=== PATIENT | male | born 1975 | race Caucasian/White ===

== ENCOUNTER → 2016-09-28 | Outpatient (CLI) | payer OTHER ==
--- NOTE | 2016-09-28 18:12 | REP ---
CT MAXILLOFACIAL WITHOUT CONTRAST: 09/28/2016. Clinical history: Acute sialoadenitis. Technique: Axial soft tissue and bone windows with coronal and sagittal bone window reconstructions provided. Some reconstructions performed with orthopedic metal artifact reduction software because of extensive dental amalgam spray artifact. This does still limit the examination particularly searching for small sialoliths. Findings: There is slight deviation of the nasal septum towards the right. The paranasal sinuses were clear throughout. Mastoids intact. The visualized calvarium and skull base were without fracture or focal lesion. Maxilla and mandible grossly intact. Nasal bones unremarkable. The upper cervical spine and craniocervical junction are unremarkable on this study as well. Adenoid pad intact. The nasopharyngeal airway patent and the oropharynx, hypopharynx and the tongue base unremarkable. The bilateral submandibular glands are symmetric. I do not see edema or mass. There is a questionable tiny sialolith on the left near the left submandibular gland, best seen on axial image 9. I do not see similar finding on the left. The parotid glands were symmetric and without mass or stone. No definite evidence for sialolith related to the parotids. Again, the extensive dental amalgam may certainly obscure this despite artifact reduction software. No other findings. Impression: 1. There is a tiny 3-4 mm calcification medial to the superior aspect of the left submandibular gland that may be a small sialolith. I do not see any other significant finding. No asymmetry of the submandibular or parotid glands, infiltration, nodule or edema adjacent to them. Signed by Michael Antonio MD 09/28/2016 06:14 P
== END ==
LOC: M RAD 17:01
PROVIDERS: ATTEND Otolaryngology
DX: K11.21 Acute sialoadenitis (principal)

== ENCOUNTER → 2017-02-04 | Outpatient (CLI) | payer OTHER ==
[~2017-02-04] MED LIST: AMOX500C PO; CITA40TA4 PO; IBUP200T45; TYLE325T5 PO; VITA2000 PO; ZYRT10CA PO
--- NOTE | 2017-02-05 13:55 | ECGEPIP ---
Stationary ECG Study 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
== END ==
LOC: M EKG 10:33
PROVIDERS: ATTEND Anesthesiology
DX: Z01.818 Encounter for other preprocedural examination (principal)

== ENCOUNTER → 2017-02-08 | Day surgery (SDC) | payer OTHER ==
[~2017-02-08] VITALS: Ht 167.6 cm; Wt 81.6 kg
[~2017-02-08] MED LIST changes: +ACETAMINOPH W/CODEINE #3 TAB UD PO PRN; +GLYCOPYRROLATE INJ 0.2 MG/ML 2 ML VIAL As Ordered ONE; +IBUPROFEN 800 MG TAB As Ordered ONE; +IBUPROFEN 800 MG TAB PO ONE; +LIDOCAINE 2% JELLY 30 ML As Ordered ONE; +LIDOCAINE PRES-FREE 2% 10ML AMP As Ordered ONE; +LR 1,000 ML IV ONE; +LR 1,000 ML IV SCH; +MIDAZOLAM INJ 2 MG/2 ML VIAL (J2250) As Ordered ONE; +NORCO, ANEXSIA 5/325MG TABLET (HYDROcodone/ACETAMINOPHEN) As Ordered ONE; +NORCO, ANEXSIA 5/325MG TABLET (HYDROcodone/ACETAMINOPHEN) PO PRN; +ONDANSETRON 4MG/2ML VIAL (J2405) As Ordered ONE; +ONDANSETRON 4MG/2ML VIAL (J2405) IV PRN; +PROPOFOL 200 MG/20 ML VIAL As Ordered ONE; +ROCURONIUM BROMIDE 50 MG/5 ML VIAL As Ordered ONE; +SUCCINYLCHOLINE 100 MG/5 ML SYRINGE (J0330) As Ordered ONE; +TRIAMCINOLONE ACETONIDE SUSP 40 MG/ML VIAL (J3301) As Ordered ONE; +dexameTHASONE 4 MG/ML 1ML VIAL (J1100) As Ordered ONE; +fentaNYL 100 MCG/2 ML INJECTION (J3010) As Ordered ONE; +fentaNYL 100 MCG/2 ML INJECTION (J3010) IV PRN
[2017-02-08 10:45] VITALS: BP 134/81
--- NOTE | 2017-02-08 20:01 | RO ---
DATE OF PROCEDURE: 02/08/2017 PREPROCEDURE DIAGNOSIS: Left submandibular duct obstruction, sialadenitis. POSTPROCEDURE DIAGNOSIS: Left submandibular duct obstruction, sialadenitis. PROCEDURE: Left submandibular duct sialendoscopy. FINDINGS: There was stenosis of the proximal 2 cm of the submandibular duct. SURGEON: Dr. Abe Finch MANAGEMENT PROFESSIONALS: Dr. Carson ANESTHESIA: DESCRIPTION OF PROCEDURE: Under general anesthesia with the patient intubated nasally, the patient was draped in the usual manner. I tried probing the submandibular duct but could not even get into it, so I made an incision in the floor of the mouth, located submandibular duct and then made an incision into the duct and then opened it. I then followed it and the proximal 2 cm were narrowed, so I inserted the endoscope and followed that from anterior to posterior. I scoped it 6 cm in length. I could not see a stone. I examined the whole area. The area, again, anteriorly was stenotic. This was dilated up. Once this was done, then I flushed the duct with Kenalog. The patient tolerated the procedure well. There was a minimal amount of bleeding. The patient was then extubated and transferred to the recovery room in excellent condition. Edited 02/08/2017 [facility]
== END | disposition home or self-care (01) ==
LOC: M SDC 06:03
PROVIDERS: ATTEND Otolaryngology
DX: K11.21 Acute sialoadenitis (principal); R00.1 Bradycardia, unspecified; K21.9 Gastro-esophageal reflux disease without esophagitis; M17.12 Unilateral primary osteoarthritis, left knee; M54.9 Dorsalgia, unspecified; L30.9 Dermatitis, unspecified; F32.9 Major depressive disorder, single episode, unspecified; R51 Headache; R06.83 Snoring; G47.33 Obstructive sleep apnea (adult) (pediatric); Z87.891 Personal history of nicotine dependence; Z79.899 Other long term (current) drug therapy
CPT/HCPCS: 42330; J0330; J1100; J2250; J2405; J3010; J3301

== ENCOUNTER → 2017-12-28 | Outpatient (CLI) | payer OTHER | END | disposition home or self-care (01) | LOC: M PAIN 12:30 | DX: G89.29 Other chronic pain (principal); M54.16 Radiculopathy, lumbar region; F41.9 Anxiety disorder, unspecified; Z79.899 Other long term (current) drug therapy; F17.210 Nicotine dependence, cigarettes, uncomplicated | CPT/HCPCS: G0463 ==

== ENCOUNTER → 2018-01-26 | Outpatient (CLI) | payer OTHER ==
[2018-01-26 13:11] LABS: BASO % 0.4 % (0.0-1.0); EOS # 0.1 10^3/uL (0.0-0.50); EOS % 1.1 % (0.0-3.0); HEMATOCRIT 40.3 % (42.0-52.0); HEMOGLOBIN 14.6 g/dl (13.5-17.5); IMMATURE GRANULOCYTE % 0.7 % (0-3.0); LYMPH # 1.6 10^3/uL (1.5-4.5); LYMPH % 19.8 % (24.0-44.0); MEAN CORPUSCULAR HGB CONC 36.2 g/dl (32.0-36.5); MONO # 0.5 10^3/uL (0.0-0.8); MONO % 6.6 % (0.0-5.0); NEUTROPHILS # 5.8 10^3/uL (1.8-7.7); NEUTROPHILS % 71.4 % (36.0-66.0); PLATELET COUNT, AUTOMATED 219 10^3/uL (150-450); RED BLOOD COUNT 5.04 10^6/uL (4.30-6.10); RED CELL DISTRIBUTION WIDTH 12.9 % (11.5-14.5); WHITE BLOOD COUNT 8.2 10^3/uL (4.0-10.0)
[2018-01-26 13:36] LABS: ALBUMIN 4.2 GM/DL (3.2-5.2); ALBUMIN/GLOBULIN RATIO 1.35 (1.00-1.93); ALKALINE PHOSPHATASE 75 U/L (45-117); ALT/SGPT 38 U/L (12-78); ANION GAP 7 MEQ/L (8-16); AST/SGOT 17 U/L (7-37); BILIRUBIN,TOTAL 0.7 MG/DL (0.2-1.0); BLOOD UREA NITROGEN 16 MG/DL (7-18); CARBON DIOXIDE LEVEL 27 MEQ/L (21-32); CHLORIDE LEVEL 107 MEQ/L (98-107); CREATININE FOR GFR 1.18 MG/DL (0.70-1.30); GLOMERULAR FILTRATION RATE > 60.0 (>60); GLUCOSE, FASTING 79 MG/DL (70-100); SODIUM LEVEL 141 MEQ/L (136-145); TOTAL PROTEIN 7.3 GM/DL (6.4-8.2)
[2018-01-26 14:35] LABS: VITAMIN B12 LEVEL 287 PG/ML
[2018-01-26 14:44] LABS: FOLATE 8.1 NG/ML
[2018-01-28 00:07] LABS: ANA (HEP2) Negative (.); COPPER PLASMA 94 ug/dL (72-166); Lyme Disease IgG/IgM Antibodie <0.91 ISR (0.00-0.90); Lyme Disease IgM Ab Quantitati <0.80 index (0.00-0.79)
== END ==
LOC: M WUC 11:04
DX: G44.229 Chronic tension-type headache, not intractable (principal)
CPT/HCPCS: 82525

== ENCOUNTER → 2018-02-07 | Outpatient (CLI) | payer OTHER | LOC: M PAIN 13:15 | DX: M54.16 Radiculopathy, lumbar region (principal); M51.26 Other intervertebral disc displacement, lumbar region; M43.06 Spondylolysis, lumbar region; F41.9 Anxiety disorder, unspecified; F17.210 Nicotine dependence, cigarettes, uncomplicated; Z79.899 Other long term (current) drug therapy | CPT/HCPCS: G0463 ==

== ENCOUNTER → 2018-03-31 | Outpatient (CLI) | payer OTHER | LOC: M PAIN 10:15 | DX: M54.12 Radiculopathy, cervical region (principal); M54.81 Occipital neuralgia; F41.9 Anxiety disorder, unspecified; M17.12 Unilateral primary osteoarthritis, left knee; G47.33 Obstructive sleep apnea (adult) (pediatric); F17.210 Nicotine dependence, cigarettes, uncomplicated; Z79.899 Other long term (current) drug therapy; Z86.79 Personal history of other diseases of the circulatory system | CPT/HCPCS: G0463 ==

== ENCOUNTER → 2018-04-19 | Outpatient (CLI) | payer OTHER | LOC: M PAIN 11:45 | DX: M54.12 Radiculopathy, cervical region (principal); M51.26 Other intervertebral disc displacement, lumbar region; M54.81 Occipital neuralgia; F41.9 Anxiety disorder, unspecified; M17.12 Unilateral primary osteoarthritis, left knee; G47.33 Obstructive sleep apnea (adult) (pediatric); F17.210 Nicotine dependence, cigarettes, uncomplicated; Z79.899 Other long term (current) drug therapy; Z86.79 Personal history of other diseases of the circulatory system | CPT/HCPCS: G0463 ==

== ENCOUNTER → 2018-06-08 | Outpatient (CLI) | payer OTHER ==
[~2018-06-08] MED LIST changes: -ACETAMINOPH W/CODEINE #3 TAB UD PO PRN; -AMOX500C PO; +BUPIVACAINE HCL 0.25% 30 ML VIAL As Ordered; -CITA40TA4 PO; -GLYCOPYRROLATE INJ 0.2 MG/ML 2 ML VIAL As Ordered ONE; -IBUP200T45; -IBUPROFEN 800 MG TAB As Ordered ONE; -IBUPROFEN 800 MG TAB PO ONE; +ISOVUE-M 300 61% 15ML VIAL (Q9967) As Ordered; +LIDOCAINE 1% SDV INJ 30 ML VIAL As Ordered; -LIDOCAINE 2% JELLY 30 ML As Ordered ONE; -LIDOCAINE PRES-FREE 2% 10ML AMP As Ordered ONE; -LR 1,000 ML IV ONE; -LR 1,000 ML IV SCH; -MIDAZOLAM INJ 2 MG/2 ML VIAL (J2250) As Ordered ONE; -NORCO, ANEXSIA 5/325MG TABLET (HYDROcodone/ACETAMINOPHEN) As Ordered ONE; -NORCO, ANEXSIA 5/325MG TABLET (HYDROcodone/ACETAMINOPHEN) PO PRN; -ONDANSETRON 4MG/2ML VIAL (J2405) As Ordered ONE; -ONDANSETRON 4MG/2ML VIAL (J2405) IV PRN; -PROPOFOL 200 MG/20 ML VIAL As Ordered ONE; -ROCURONIUM BROMIDE 50 MG/5 ML VIAL As Ordered ONE; -SUCCINYLCHOLINE 100 MG/5 ML SYRINGE (J0330) As Ordered ONE; -TRIAMCINOLONE ACETONIDE SUSP 40 MG/ML VIAL (J3301) As Ordered ONE; -TYLE325T5 PO; -VITA2000 PO; -ZYRT10CA PO; -dexameTHASONE 4 MG/ML 1ML VIAL (J1100) As Ordered ONE; -fentaNYL 100 MCG/2 ML INJECTION (J3010) As Ordered ONE; -fentaNYL 100 MCG/2 ML INJECTION (J3010) IV PRN
== END ==
LOC: M PAIN 08:30
DX: G89.29 Other chronic pain (principal); M47.816 Spondylosis without myelopathy or radiculopathy, lumbar region; M47.817 Spondylosis without myelopathy or radiculopathy, lumbosacral region; F41.9 Anxiety disorder, unspecified; M17.12 Unilateral primary osteoarthritis, left knee; G47.33 Obstructive sleep apnea (adult) (pediatric); F17.210 Nicotine dependence, cigarettes, uncomplicated; Z79.899 Other long term (current) drug therapy; Z86.79 Personal history of other diseases of the circulatory system
CPT/HCPCS: Q9967

== ENCOUNTER → 2018-06-29 | Outpatient (CLI) | payer OTHER | LOC: M PAIN 14:45 | DX: M54.12 Radiculopathy, cervical region (principal); M51.26 Other intervertebral disc displacement, lumbar region; M54.81 Occipital neuralgia; F41.9 Anxiety disorder, unspecified; M17.12 Unilateral primary osteoarthritis, left knee; G47.33 Obstructive sleep apnea (adult) (pediatric); F17.210 Nicotine dependence, cigarettes, uncomplicated; Z79.899 Other long term (current) drug therapy; Z86.69 Personal history of other diseases of the nervous system and sense organs; Z86.79 Personal history of other diseases of the circulatory system | CPT/HCPCS: G0463 ==

== ENCOUNTER → 2018-07-18 | Outpatient (CLI) | payer OTHER | LOC: M PAIN 16:00 | DX: M47.812 Spondylosis without myelopathy or radiculopathy, cervical region (principal); F41.9 Anxiety disorder, unspecified; M17.12 Unilateral primary osteoarthritis, left knee; G47.33 Obstructive sleep apnea (adult) (pediatric); I20.9 Angina pectoris, unspecified; F17.210 Nicotine dependence, cigarettes, uncomplicated; Z79.899 Other long term (current) drug therapy | CPT/HCPCS: G0463 ==

== ENCOUNTER → 2018-09-14 | Outpatient (CLI) | payer OTHER ==
[~2018-09-14] MED LIST changes: +AMOX500C PO; -BUPIVACAINE HCL 0.25% 30 ML VIAL As Ordered; +BUPIVACAINE HCL 0.25% 30 ML VIAL As Ordered ONE; +CITA40TA4 PO; +IBUP200T45; -ISOVUE-M 300 61% 15ML VIAL (Q9967) As Ordered; +ISOVUE-M 300 61% 15ML VIAL (Q9967) As Ordered ONE; -LIDOCAINE 1% SDV INJ 30 ML VIAL As Ordered; +LIDOCAINE 1% SDV INJ 30 ML VIAL As Ordered ONE; +MIDAZOLAM INJ 2 MG/2 ML VIAL (J2250) As Ordered ONE; +TRIAMCINOLONE ACETONIDE SUSP 40 MG/ML VIAL (J3301) As Ordered ONE; +TYLE325T5 PO; +VITA2000 PO; +ZYRT10CA PO; +fentaNYL 100 MCG/2 ML INJECTION (J3010) As Ordered ONE
--- NOTE | 2018-09-14 17:16 | REP ---
Cervical spine: Two views limited study. History: Bilateral cervical facet injection for pain. 10 seconds of fluoroscopy time is reported. Findings: A sequence of two last image hold fluoroscopically obtained spot radiographs of the cervical spine document various needle positions and contrast injections associated with cervical spine injection procedure. Electronically Signed by Nahum Perez MD 09/14/2018 06:18 P
--- NOTE | 2018-10-02 00:57 | ECWPNPC ---
PATIENT NAME: GIANNA NDIAYE : 1975 GENDER: MALE VISIT DATE: 09/14/2018 DISCHARGE DATE: 09/14/18 1654 VISIT LOCKED DATE TIME: PHYSICIAN: KALANI JEFFERS MD RESOURCE: KALANI JEFFERS MD REASON FOR APPOINTMENT 1. CERVICAL THERAPEUTIC FB W/ IV SEDATION HISTORY OF PRESENT ILLNESS HISTORY OF PRESENT ILLNESS: PAIN THE PATIENT DESCRIBES THE PAIN... FALL RISK SCREENING: SCREENING :NO FALLS IN THE PAST YEAR CURRENT MEDICATIONS TAKING ZOLOFT 100 MG TABLET 1 TABLET ORALLY DAILY, NOTES: 09/12 TAKING ZYRTEC ALLERGY 10 MG CAPSULE 1 CAPSULE ORALLY ONCE A DAY, NOTES: 09/13 1599 TAKING IBUPROFEN 200 MG TABLET 4 TABLETS WITH FOOD OR MILK NEEDED ORALLY THREE TIMES A DAY NEEDED, NOTES: LAST WEEK TAKING TUMS 500 MG TABLET CHEWABLE 3 TABLETS ORALLY PRN, NOTES: 09/12 TAKING VITAMIN B-12 1000 MCG TABLET 1 TABLET ORALLY ONCE A DAY, NOTES: 09/13 0800 TAKING OMEPRAZOLE 20 MG CAPSULE DELAYED RELEASE 1 CAPSULE ORALLY ONCE A DAY, NOTES: 09/13 1599 TAKING VITAMIN D-3 1000 UNIT CAPSULE 1 CAPSULE ORALLY ONCE A DAY, NOTES: 09/13 0800 TAKING VIAGRA 50 MG TABLET 1 TABLET NEEDED ORALLY ONCE A DAY, NOTES: HASN'T TAKEN YET DISCONTINUED TIZANIDINE HCL 2 MG TABLET 1 TABLET NEEDED ORALLY FOR SPASMS AND PAIN BEFORE BEDTIME MAY REPEAT IN 4 HRS MDD2 DISCONTINUED TOPIRAMATE 50 MG TABLET 1 TABLET ORALLY TWICE A DAY MEDICATION LIST REVIEWED AND RECONCILED WITH THE PATIENT PAST MEDICAL HISTORY ANXIETY 2003 BELLS PALSY NECK,SHOULDER AND BACK PAIN HEADACHES 2007 MICRO FX LEFT KNEE ARTHRITIS LEFT KNEE YAA ANGINA ALLERGIES N.K.D.A. SURGICAL HISTORY UMBILICAL HERNIA REPAIR A CHILD RIGHT INGUINAL HERNIA REPAIR WITH MESH 1998 MICRO FRACTURE REPAIR LEFT KNEE 2007 LEFT MINISCAL REPAIR 2008 PYLONIDAL CYST REMOVAL 2014 SALIVARY GLAND DILATION 2017 URETHRAL REPAIR AN FAMILY HISTORY FATHER: , DIAGNOSED WITH HYPERTENSION, HEART DISEASE, STROKE, OTHER MOTHER: ALIVE, DIAGNOSED WITH HYPERTENSION, CANCER 1 SISTER(S) - HEALTHY. 2 SON(S) , 1 DAUGHTER(S) . FATHER--KIDNEY DISEASEMOTHER-BLADDER [place]-MOSAIC DOWN SYNDROME. SOCIAL HISTORY GENERAL: TOBACCO USE ARE YOU A:CURRENT SMOKER ARE YOU INTERESTED IN QUITTING?THINKING ABOUT QUITTING PT STATES HE HAS CUT DOWN AND IS TRYING TO QUIT. AD PREVIOUS QUIT ATTEMPTS?YES, MORE THAN 6 MONTHS AGO. COUNSELED THE PATIENT ON SMOKING CESSATION, EDUCATION [id number]/17/2019 HOW MANY CIGARETTES A DAY DO YOU SMOKE?5 OR LESS HOW SOON AFTER YOU WAKE UP DO YOU SMOKE YOUR FIRST CIGARETTE?AFTER 60 MIN HOW OFTEN DO YOU SMOKE CIGARETTES?SOME DAYS, BUT NOT EVERY DAY PATIENT COUNSELED ON THE DANGERS OF TOBACCO USE AND URGED TO QUIT:09/14/2018 SMOKING CESSATION INFORMATION GIVEN DECLINED ALCOHOL SCREENING DID YOU HAVE A DRINK CONTAINING ALCOHOL IN THE PAST YEAR?NO POINTS0 INTERPRETATIONNEGATIVE RECREATIONAL DRUG USE DRUG USE?NO CAFFEINE CAFFEINE USE?YES HOW OFTEN AND HOW MUCH? 3-4 20 OZ BOTTLES OF [place]/WEEK EPISCOPAL [id number] REFORM RELIGIOUS LANGUAGE LANGUAGES SPOKEN:TURKMEN EDUCATION LEVEL OF EDUCATION:NOT FINISHED COLLEGE LEARNING BARRIERS / SPECIAL NEEDS BARRIERS TO LEARNING?NO HEARING IMPAIRED?NO VISION IMPAIRED?YES :CORRECTIVE LENSES COGNITIVELY IMPAIRED?NO READINESS TO LEARN?YES LEARNING PREFERENCES?YES :DEMONSTRATION/VERBAL INSTRUCTION LEARNING CAPABILITIES PRESENT?YES EMOTIONAL BARRIERS?NO SPECIAL DEVICES?NO CAN FILLER NEEDED?NO DOMESTIC VIOLENCE DO YOU FEEL SAFE IN YOUR ENVIRONMENT?YES OCCUPATION: [employer]. DIET: REGULAR. EXERCISE: WALKS. MARITAL STATUS: . OTHERS AT HOME: SPOUSE, CHILDREN. NEW PATIENT PAIN DIARY PRECIPITATING FACTORS PAIN CLINIC PFS, CLERGY, PUBLIC HEALTH REFERRALS PFS REFERRAL NEEDED?NO CLERGY REFERRAL NEEDED?NO PUBLIC HEALTH REFERRAL NEEDED?NO WAS THE PROVIDER NOTIFIED OF ANY PERTINENT INFO?YES HAS THE PATIENT BEEN EDUCATED REGARDING HIS/HER PLAN OF CARE?YES HAS THE PATIENT BEEN EDUCATED REGARDING PAIN, THE RISK FOR PAIN, THE IMPORTANCE OF EFFECTIVE PAIN MANAGEMENT, AND THE PAIN ASSESSMENT PROCESS?YES ADVANCE DIRECTIVE ADVANCE DIRECTIVE DISCUSSED WITH PATIENT:YES 09/14/18 PT DOES NOT HAVE ANY ADVANCED DIRECTIVES AND HE DECLINES INFORMATION ON HCP AT THIS TIME. AD REVIEWED WITH PATIENT 06/29/18 1505 JSREVIEWED WITH PATIENT 07/18/18 1634 JS09/14/18 1455 REVIEWED WITH PT. AD. HOSPITALIZATION/MAJOR DIAGNOSTIC PROCEDURE CHEST PAIN 2003 REVIEW OF SYSTEMS REVIEWED BY: PROVIDER: . CONSTITUTIONAL: ANY CHANGE IN YOUR MEDICAL CONDITION? NO . CHILLS NO . FEVER NO . INFECTION: DO YOU HAVE NEW INFECTIONS? NO . DO YOU HAVE HISTORY OF MRSA? NO . MUSCULOSKELETAL: ANY NEW PATTERNS OF PAIN OR NUMBNESS? NO . GASTROENTEROLOGY: ANY NEW CHANGE IN BOWEL CONTROL? NO . GENITOURINARY: ANY NEW CHANGE IN BLADDER CONTROL? NO . IS THERE A CHANCE YOU COULD BE ? NO . HEMATOLOGY/LYMPH: DO YOU TAKE ANY BLOOD THINNERS? (FOR EXAMPLE- COUMADIN, PLAVIX, AGGRENOX, PLATEL, PRADAXA, OR XARELTO) NO . WHEN WAS YOUR LAST DOSE? DATE: TIME: . NEUROLOGY: HAVE YOU FALLEN IN THE PAST 12 MONTHS? NO . ANY NEW EXTREMITY NUMBNESS OR WEAKNESS? NO . CARDIOLOGY: DO YOU HAVE A PACEMAKER OR DEFIBRILLATOR? NO . RESPIRATORY: HAVE YOU BEEN SICK IN THE PAST WEEK? NO . FEVER NO . FLU LIKE SYMPTOMS? NO . COUGH NO . INTEGUMENTARY: DO YOU HAVE ANY RASHES OR OPEN SORES? NO . ALLERGIC/IMMUNO: ARE YOU ALLERGIC TO IV DYE? NO . ANY NEW ALLERGIES? NO . PSYCHIATRIC: DO YOU HAVE THOUGHTS OF HURTING YOURSELF OR SOMEONE ELSE? NO . ARE YOU ABUSED, NEGLECTED, OR IN AN UNSAFE ENVIRONMENT? NO . ENDOCRINOLOGY: ARE YOU DIABETIC? NO . OTHER: DO YOU NEED ANY PRESCRIPTIONS? NO . IF YES, PLEASE LIST: ____ . ANY NEW PROBLEMS WITH YOUR MEDICATIONS? NO . WHEN DID YOU LAST EAT? 09/13 2299 . WHEN DID YOU LAST DRINK? 09/13 2299 . WHAT DID YOU LAST DRINK? [place] . NAME OF PERSON DRIVING YOU HOME? ____ . DO YOU HAVE ANY OTHER QUESTIONS OR CONCERNS , SARA . VITAL SIGNS WT 198.0 LBS, HT 66 IN, BMI 31.95 INDEX, BP 132/83 MM HG, HR 72 /MIN, RR 16 /MIN, TEMP 97.3 F, OXYGEN SAT % 98%, SAFE IN ENV? (Y/N) Y, NA INITIALS AW 1302, REVIEWED BY: AD. ASSESSMENTS SPONDYLOSIS OF CERVICAL REGION WITHOUT MYELOPATHY OR RADICULOPATHY - M47.812 (PRIMARY) PROCEDURES PN CERVICAL FACET BLOCK LOW BILATERAL CERVICAL PRE PROCEDURE DIAGNOSIS CERVICAL SPONDYLOSIS POST PROCEDURE DIAGNOSIS CERVICAL SPONDYLOSIS PROCEDURE BILATERAL C3-C4 AND BILATERAL C4-C5 CERVICAL FACET BLOCK SURGEON DR. KALANI JEFFERS C++ PROFESSOR NONE ANESTHESIA LOCAL WITH IV SEDATION PRE PROCEDURE NOTE THE PATIENT HAS HISTORY OF CHRONIC CERVICAL PAIN. I EVALUATE THE PATIENT AND REVIEWED THE CHART. I WENT OVER THE RISKS, ALTERNATIVES, AND BENEFITS ASSOCIATED WITH THIS PROCEDURE. THE PATIENT WOULD LIKE TO PROCEED AND GIVE CONSENT TO PERFORMED THE PROCEDURE. PATIENT WOULD LIKE TO MOVE FORWARD WITH IV SEDATION DUE TO DISCOMFORT, PAIN AND ANXIETY ASSOCIATED WITH THE PROCEDURE. THE PATIENT DENIES UNEXPLAINABLE WEIGHT LOSS, FEVER, CHILLS, OR NEW CHANGES IN URINARY OR BOWEL CONTROL. DESCRIPTION OF PROCEDURE THE PATIENT WAS BROUGHT TO THE PROCEDURE ROOM AND PLACED IN THE PRONE POSITION. THE CERVICOTHORACIC AREA WAS CLEANED WITH CHLORAPREP SOLUTION AND DRAPED ASEPTICALLY. THE PROCEDURE WAS DONE UNDER STERILE CONDITIONS. I CHECKED LATERALITY AND THE LEVEL WHERE THE PROCEDURE WAS GOING TO BE PERFORMED WITH THE PATIENT AND THE SUPPORTING STAFF AT THE MOMENT OF THE TIME OUT IN THE PROCEDURE ROOM. UNDER FLUOROSCOPIC GUIDANCE, TARGET POINT WAS SELECTED AT THE RIGHT AND LEFT C3-C4 AND RIGHT AND LEFT C4-C5 CERVICAL FACET JOINT. TARGET POINTS WERE SELECTED AFTER LATERAL ROTATION AND TILT OF THE MAGNIFIER OF THE C-ARM. LIDOCAINE 0.5% WAS USED TO NUMB THE SKIN AND THE SUBCUTANEOUS TISSUE BELOW IT. SPINAL NEEDLES, 22-GAUGE, WERE ADVANCED UNDER FLUOROSCOPIC GUIDANCE AND FOLLOWING PATIENT FEEDBACK UNTIL THE TARGETS WERE TOUCHED. THE POSITION OF THE NEEDLES WAS VERIFIED WITH AP AND LATERAL VIEWS. AFTER PROPER POSITION OF THE NEEDLES WAS ACHIEVED, ISOVUE M DYE 30, 0.1 ML WAS INJECTED SHOWING SPREAD OF THE DYE. THEN A SOLUTION OF 0.9 ML OF BUPIVACAINE 0.125% AND KENALOG 10 MG WAS INJECTED AT EACH SITE. PATIENT RECEIVED VERSED 2 MG AND FENTANYL 300 MCG IV DIVIDED DOSES. THERE WAS NO EVIDENCE OF BLOOD, PARESTHESIA OR CEREBROSPINAL FLUID DURING THE PROCEDURE. THE PATIENT WAS SENT TO THE RECOVERY ROOM. THE PATIENT WAS MOVING THE EXTREMITIES AND DOING WELL. THERE WAS NO COMPLICATION DURING THE PROCEDURE. FLUOROSCOPY TIME WAS 10 SECONDS. FACE TO FACE TIME WAS 15 MINUTES. POST PROCEDURE NOTE THE PATIENT WILL BE SEEN IN A FOLLOW UP IN THE NEXT FEW WEEKS. INSTRUCTIONS WERE GIVEN, QUESTIONS WERE ANSWERED, AND THE PATIENT EXPRESSED UNDERSTANDING AND AGREES WITH THE PLAN. I, ALONA ALVARADO, DOCUMENTED THE ABOVE INFORMATION ACTING A SCRIBE FOR DR. JEFFERS. I HAVE REVIEWED THE ABOVE DOCUMENT, WRITTEN BY ALONA ALVARADO SCRIBKong AND I VERIFY THAT IT IS ACCURATE. DIAGNOSTIC IM[facility] FACET BLOCK (PAIN)[id number] PROCEDURE CODES 6045F RADXPS IN END [id number] PXD 34140 INJ PARAVERT F JNT C/T 1 LEV, MODIFIERS: 50 15364 INJ PARAVERT F JNT C/T 2 LEV, MODIFIERS: 50 64508 MOD SED SAME PHYS/QHP 5/>YRS DISPOSITION & COMMUNICATION FOLLOW UP 3 WEEKS ELECTRONICALLY SIGNED BY KALANI JEFFERS MD, ON 10/01/2018 AT 05:50 PM EST DISCLAIMER : THIS IS A VISIT SUMMARY EXTRACTED FROM THE [email or web address] CHART. IT IS NOT A COPY OF THE [employer] PROGRESS NOTE. MTDD
== END ==
LOC: M PAIN 13:00
PROVIDERS: ATTEND Anesthesiology
DX: G89.29 Other chronic pain (principal); M47.812 Spondylosis without myelopathy or radiculopathy, cervical region; M17.12 Unilateral primary osteoarthritis, left knee; F41.9 Anxiety disorder, unspecified; G47.33 Obstructive sleep apnea (adult) (pediatric); F17.210 Nicotine dependence, cigarettes, uncomplicated; Z79.899 Other long term (current) drug therapy; Z86.69 Personal history of other diseases of the nervous system and sense organs; Z86.79 Personal history of other diseases of the circulatory system
CPT/HCPCS: 64490; 64491; 99152; J2250; J3010; J3301; Q9967

== ENCOUNTER → 2018-09-29 | Outpatient (CLI) | payer OTHER ==
[~2018-09-29] MED LIST changes: -BUPIVACAINE HCL 0.25% 30 ML VIAL As Ordered ONE; -ISOVUE-M 300 61% 15ML VIAL (Q9967) As Ordered ONE; -LIDOCAINE 1% SDV INJ 30 ML VIAL As Ordered ONE; -MIDAZOLAM INJ 2 MG/2 ML VIAL (J2250) As Ordered ONE; -TRIAMCINOLONE ACETONIDE SUSP 40 MG/ML VIAL (J3301) As Ordered ONE; -fentaNYL 100 MCG/2 ML INJECTION (J3010) As Ordered ONE
--- NOTE | 2018-10-14 23:58 | ECWPNPC ---
PATIENT NAME: GIANNA NDIAYE : 1975 GENDER: MALE VISIT DATE: 09/29/2018 DISCHARGE DATE: 09/29/18 0949 VISIT LOCKED DATE TIME: PHYSICIAN: KALANI JEFFERS MD RESOURCE: KALANI JEFFERS MD REASON FOR APPOINTMENT 1. POST PROC HISTORY OF PRESENT ILLNESS HISTORY OF PRESENT ILLNESS: PAIN THE PATIENT DESCRIBES THE PAIN... 43 YEAR OLD MALE PATIENT WITH A HISTORY OF CHRONIC NECK PAIN. THE PATIENT DESCRIBES THE PAIN ACHING, SHARP, STABBING, AND INTERMITTENT WITH A PAIN SCORE OF 3-5/10 DEPENDING ON PHYSICAL ACTIVITY. THE PATIENT WAS HERE FOR A THERAPEUTIC CERVICAL FACET BLOCK ON 09/14/2018 AND REPORTS MORE THAN 50% PAIN RELIEF AND SAYS THAT HE IS STILL DOING VERY WELL. THE PATIENT SAYS THAT HE HAS SOME STIFFNESS IN HIS NECK. PATIENT DENIES UNEXPLAINABLE WEIGHT LOSS, FEVER, CHILLS, NEW CHANGES ON HIS URINARY OR BOWEL CONTROL. FALL RISK SCREENING: SCREENING :NO FALLS IN THE PAST YEAR CURRENT MEDICATIONS TAKING ZOLOFT 100 MG TABLET 1 TABLET ORALLY DAILY, NOTES: 09/12 TAKING ZYRTEC ALLERGY 10 MG CAPSULE 1 CAPSULE ORALLY ONCE A DAY, NOTES: 09/13 1599 TAKING IBUPROFEN 200 MG TABLET 4 TABLETS WITH FOOD OR MILK NEEDED ORALLY THREE TIMES A DAY NEEDED, NOTES: LAST WEEK TAKING TUMS 500 MG TABLET CHEWABLE 3 TABLETS ORALLY PRN, NOTES: 09/12 TAKING VITAMIN B-12 1000 MCG TABLET 1 TABLET ORALLY ONCE A DAY, NOTES: 09/13 0800 TAKING OMEPRAZOLE 20 MG CAPSULE DELAYED RELEASE 1 CAPSULE ORALLY ONCE A DAY, NOTES: 09/13 1600 TAKING VITAMIN D-3 1000 UNIT CAPSULE 1 CAPSULE ORALLY ONCE A DAY, NOTES: 09/13 0800 TAKING VIAGRA 50 MG TABLET 1 TABLET NEEDED ORALLY ONCE A DAY, NOTES: HASN'T TAKEN YET MEDICATION LIST REVIEWED AND RECONCILED WITH THE PATIENT PAST MEDICAL HISTORY ANXIETY 2003 BELLS PALSY NECK,SHOULDER AND BACK PAIN HEADACHES 2007 MICRO FX LEFT KNEE ARTHRITIS LEFT KNEE YAA ANGINA ALLERGIES N.K.D.A. SURGICAL HISTORY UMBILICAL HERNIA REPAIR A CHILD RIGHT INGUINAL HERNIA REPAIR WITH MESH 1998 MICRO FRACTURE REPAIR LEFT KNEE 2007 LEFT MINISCAL REPAIR 2008 PYLONIDAL CYST REMOVAL 2014 SALIVARY GLAND DILATION 2017 URETHRAL REPAIR AN INFANT FAMILY HISTORY FATHER: , DIAGNOSED WITH HYPERTENSION, HEART DISEASE, STROKE, OTHER MOTHER: ALIVE, DIAGNOSED WITH HYPERTENSION, CANCER 1 SISTER(S) - HEALTHY. 2 SON(S) , 1 DAUGHTER(S) . FATHER--KIDNEY DISEASEMOTHER-BLADDER [place]O-MOSAIC DOWN SYNDROME. SOCIAL HISTORY GENERAL: TOBACCO USE ARE YOU A:CURRENT SMOKER ARE YOU INTERESTED IN QUITTING?THINKING ABOUT QUITTING PT STATES HE HAS CUT DOWN AND IS TRYING TO QUIT. AD PREVIOUS QUIT ATTEMPTS?YES, MORE THAN 6 MONTHS AGO. COUNSELED THE PATIENT ON SMOKING CESSATION, EDUCATION [id number]/01/2019 HOW MANY CIGARETTES A DAY DO YOU SMOKE?5 OR LESS HOW SOON AFTER YOU WAKE UP DO YOU SMOKE YOUR FIRST CIGARETTE?AFTER 60 MIN HOW OFTEN DO YOU SMOKE CIGARETTES?SOME DAYS, BUT NOT EVERY DAY PATIENT COUNSELED ON THE DANGERS OF TOBACCO USE AND URGED TO QUIT:09/29/2018 SMOKING CESSATION INFORMATION GIVEN DECLINED ALCOHOL SCREENING DID YOU HAVE A DRINK CONTAINING ALCOHOL IN THE PAST YEAR?NO POINTS0 INTERPRETATIONNEGATIVE RECREATIONAL DRUG USE DRUG USE?NO CAFFEINE CAFFEINE USE?YES HOW OFTEN AND HOW MUCH? 3-4 20 OZ BOTTLES OF [place]/WEEK ANGLICAN [id number] REFORM CONGREGATIONAL LANGUAGE LANGUAGES SPOKEN:KINYARWANDA EDUCATION LEVEL OF EDUCATION:NOT FINISHED COLLEGE LEARNING BARRIERS / SPECIAL NEEDS BARRIERS TO LEARNING?NO HEARING IMPAIRED?NO VISION IMPAIRED?YES :CORRECTIVE LENSES COGNITIVELY IMPAIRED?NO READINESS TO LEARN?YES LEARNING PREFERENCES?YES :DEMONSTRATION/VERBAL INSTRUCTION LEARNING CAPABILITIES PRESENT?YES EMOTIONAL BARRIERS?NO SPECIAL DEVICES?NO COMMERCIAL LINES UNDERWRITER NEEDED?NO DOMESTIC VIOLENCE DO YOU FEEL SAFE IN YOUR ENVIRONMENT?YES OCCUPATION: [employer]. DIET: REGULAR. EXERCISE: WALKS. MARITAL STATUS: . OTHERS AT HOME: SPOUSE, CHILDREN. NEW PATIENT PAIN DIARY PRECIPITATING FACTORS PAIN CLINIC PFS, CLERGY, PUBLIC HEALTH REFERRALS PFS REFERRAL NEEDED?NO CLERGY REFERRAL NEEDED?NO PUBLIC HEALTH REFERRAL NEEDED?NO WAS THE PROVIDER NOTIFIED OF ANY PERTINENT INFO?YES HAS THE PATIENT BEEN EDUCATED REGARDING HIS/HER PLAN OF CARE?YES HAS THE PATIENT BEEN EDUCATED REGARDING PAIN, THE RISK FOR PAIN, THE IMPORTANCE OF EFFECTIVE PAIN MANAGEMENT, AND THE PAIN ASSESSMENT PROCESS?YES ADVANCE DIRECTIVE ADVANCE DIRECTIVE DISCUSSED WITH PATIENT:YES 09/29/18 PT DOES NOT HAVE ANY ADVANCED DIRECTIVES AND HE DECLINES INFORMATION ON HCP OR ASSISTANCE AT THIS TIME. LAS REVIEWED WITH PATIENT 06/29/18 1505 JSREVIEWED WITH PATIENT 07/18/18 1634 JS09/14/18 1455 REVIEWED WITH PT. AD2/1922 REVIEWED WITH PT LAS. HOSPITALIZATION/MAJOR DIAGNOSTIC PROCEDURE CHEST PAIN 2003 REVIEW OF SYSTEMS REVIEWED BY: PROVIDER: KALANI JEFFERS MD . CONSTITUTIONAL: ANY CHANGE IN YOUR MEDICAL CONDITION? NO . CHILLS NO . FEVER NO . INFECTION: DO YOU HAVE NEW INFECTIONS? NO . DO YOU HAVE HISTORY OF MRSA? NO . MUSCULOSKELETAL: ANY NEW PATTERNS OF PAIN OR NUMBNESS? PT HAD BILATERAL CERVICAL THERAPEUTIC FACET BLOCK DONE 09/14, REPORTS SOME IMPROVEMENT. BUT ALSO REPORTS A NEW FEELING OF PRESSURE ABOVE THE SITE OF HIS INJECTION ON HIS LEFT NECK AREA, ESPECIALLY WHEN HE TURNS HIS HEAD TO THE LEFT. STATES HE IS STILL HAVING HEADACHES, ALSO REPORTS A PINCHING FEELING. . GASTROENTEROLOGY: ANY NEW CHANGE IN BOWEL CONTROL? NO . GENITOURINARY: ANY NEW CHANGE IN BLADDER CONTROL? NO . IS THERE A CHANCE YOU COULD BE ? NO . HEMATOLOGY/LYMPH: DO YOU TAKE ANY BLOOD THINNERS? (FOR EXAMPLE- COUMADIN, PLAVIX, AGGRENOX, PLATEL, PRADAXA, OR XARELTO) NO . WHEN WAS YOUR LAST DOSE? DATE: TIME: . NEUROLOGY: HAVE YOU FALLEN IN THE PAST 12 MONTHS? NO . ANY NEW EXTREMITY NUMBNESS OR WEAKNESS? NO . CARDIOLOGY: DO YOU HAVE A PACEMAKER OR DEFIBRILLATOR? NO . RESPIRATORY: HAVE YOU BEEN SICK IN THE PAST WEEK? NO . FEVER NO . FLU LIKE SYMPTOMS? NO . COUGH NO . INTEGUMENTARY: DO YOU HAVE ANY RASHES OR OPEN SORES? NO . ALLERGIC/IMMUNO: ARE YOU ALLERGIC TO IV DYE? NO . ANY NEW ALLERGIES? NO . PSYCHIATRIC: DO YOU HAVE THOUGHTS OF HURTING YOURSELF OR SOMEONE ELSE? NO . ARE YOU ABUSED, NEGLECTED, OR IN AN UNSAFE ENVIRONMENT? NO . ENDOCRINOLOGY: ARE YOU DIABETIC? NO . OTHER: DO YOU NEED ANY PRESCRIPTIONS? NO . IF YES, PLEASE LIST: ____ . ANY NEW PROBLEMS WITH YOUR MEDICATIONS? NO . WHEN DID YOU LAST EAT? ____ . WHEN DID YOU LAST DRINK? ____ . WHAT DID YOU LAST DRINK? ____ . NAME OF PERSON DRIVING YOU HOME? ____ . DO YOU HAVE ANY OTHER QUESTIONS OR CONCERNS NO . VITAL SIGNS WT 191.2 LBS, HT 66 IN, BMI 30.86 INDEX, BP 133/86 MM HG, HR 54 /MIN, RR 18 /MIN, TEMP 96.9 F, OXYGEN SAT % 98%, SAFE IN ENV? (Y/N) YES, NA INITIALS HI 09:11, REVIEWED BY: JING. EXAMINATION GENERAL EXAMINATION: PATIENT IS ALERT O X 3 AND COOPERATIVE. MRI OF THE CERVICAL SPINE DONE ON 04/11/2018 SHOWS FACET ARTHROPATHY CHANGES AT MULTIPLE LEVELS. ASSESSMENTS SPONDYLOSIS OF CERVICAL REGION WITHOUT MYELOPATHY OR RADICULOPATHY - M47.812 (PRIMARY) TREATMENT SPONDYLOSIS OF CERVICAL REGION WITHOUT MYELOPATHY OR RADICULOPATHY CLINICAL NOTES: WE DISCUSSED SEVERAL ISSUES WITH MR. NDIAYE'S PAIN MANAGEMENT CASE. THE PATIENT REPORTS THAT HE IS DOING WELL, SO WE WILL NOT BE MOVING FORWARD WITH ANY INTERVENTIONS AT THIS TIME. I WILL REQUEST AN INTERFERENTIAL TENS UNIT FOR THE STIFFNESS IN HIS NECK. THE PATIENT WILL FOLLOW UP IN 2 MONTHS. INSTRUCTIONS WERE GIVEN, QUESTIONS WERE ANSWERED, PATIENT REPORTS UNDERSTANDING AND AGREES WITH THE PLAN. I, ALONA ALVARADO, DOCUMENTED THE ABOVE INFORMATION ACTING A SCRIBE FOR DR. JEFFERS. I HAVE REVIEWED THE ABOVE DOCUMENT, WRITTEN BY ALONA GUTIERREZ AND I VERIFY THAT IT IS ACCURATE. PROCEDURE CODES FA211 ESTABILISHED PATIENT [facility] FAC[facility] CHARGE G8427 CURRENT MEDS W/DOSAGES DOCUMENTED G8730 PAIN ASSESS POS TOOL F/U PLAN DOC DISPOSITION & COMMUNICATION FOLLOW UP 2 MONTHS ELECTRONICALLY SIGNED BY KALANI JEFFERS MD, ON 10/14/2018 AT 05:09 PM EST DISCLAIMER : THIS IS A VISIT SUMMARY EXTRACTED FROM THE [employer] CHART. IT IS NOT A COPY OF THE [employer] PROGRESS NOTE. MTDD
== END ==
LOC: M PAIN 08:45
PROVIDERS: ATTEND Anesthesiology
DX: M47.812 Spondylosis without myelopathy or radiculopathy, cervical region (principal); G89.29 Other chronic pain; F41.9 Anxiety disorder, unspecified; M17.12 Unilateral primary osteoarthritis, left knee; F17.210 Nicotine dependence, cigarettes, uncomplicated; Z79.899 Other long term (current) drug therapy; Z86.79 Personal history of other diseases of the circulatory system

== ENCOUNTER → 2020-01-29 | Outpatient (CLI) | payer OTHER ==
--- NOTE | 2020-01-31 01:53 | ECWPNPC ---
PATIENT NAME: GIANNA NDIAYE : 1975 GENDER: MALE VISIT DATE: 01/29/2020 DISCHARGE DATE: 01/29/20 1415 VISIT LOCKED DATE TIME: PHYSICIAN: KYMBERLY COPELAND RESOURCE: KYMBERLY COPELAND REASON FOR APPOINTMENT 1. BACK/NECK-PER FIDELIA HISTORY OF PRESENT ILLNESS GENERAL: - -44-YEAR-OLD MALE IN FOR CHRONIC PAIN FOLLOW-UP. HE RATES HIS PAIN CURRENTLY AT A 7 OUT OF 10 AND DESCRIBES IT PINCHING PRESSURE-LIKE FEELING THAT IS STIFF AND SORE. PATIENT HAS HAD CERVICAL FACET BLOCKS IN THE PAST WITH GOOD RELIEF. FALL RISK SCREENING: SCREENING :NO FALLS REPORTED IN THE LAST YEAR PAIN SCREENING: PATIENT HAS A COMPLAINT OF ACUTE OR CHRONIC PAIN :YES LOCATION OF PAIN:NECK, LOW BACK INTENSITY OF PAIN (SCALE OF 1 TO 10):7 WHAT DOES YOUR PAIN FEEL LIKE: NECK- PINCHING, WARM, FEELS LIKE FLUID FLOWING, PRESSURE BACK- ACHY, STIFFNESS, SORE DURATION:CONTINOUS, CONSTANT, ALL DAY, AWAKENS FROM SLEEP PAIN IS INCREASED BY:ACTIVITIES, OTHERS SITTING PAIN IS DECREASED BY:USE OF PAIN MEDICATIONS MOTRIN LEVEL OF RELIEF FROM PAIN TREATMENTS IN THE PAST:75% PAIN HAS INTERFERED WITH THE FOLLOWING:EMPLOYMENT, SLEEP, RELATIONSHIP WITH OTHERS, ENJOYMENT OF LIFE PLAN/GOALS/TREATMENT/INTERVENTION/FOLLOW UP:SEE PLAN NURSING NOTE: - -. PAIN CENTER INTAKE QUESTIONS: DO YOU HAVE A HISTORY OF MRSA? :NO DO YOU TAKE A BLOOD THINNERS? :NO DO YOU HAVE ANY BLEEDING DISORDERS? :NO ANY NEW NUMBNESS OR WEAKNESS IN YOUR LEGS OR ARMS? :NO ANY PACEMAKER,DEFIBRILLATOR, OR DORSAL COLUMN STIMULATOR? :NO DO YOU HAVE ANY RASHES OR OPEN SORES? :NO ARE YOU ALLERGIC TO IV DYE? :NO ARE YOU DIABETIC? :NO ANY NEW PROBLEMS WITH YOUR MEDICATIONS? :NO HAVE YOU RECEIVED A VACCINE IN THE PAST 30 DAYS? :NO DO YOU PLAN TO RECEIVE A VACCINE IN THE NEXT 21 DAYS? :NO DO YOU NEED ANY PRESCRIPTION? :NO DO YOU TAKE ANY IMMUNOSUPPRESSIVE MEDICATIONS? :NO CURRENT MEDICATIONS TAKING ZYRTEC ALLERGY 10 MG CAPSULE 1 CAPSULE ORALLY ONCE A DAY, NOTES: 09/13 1600 TAKING IBUPROFEN 200 MG TABLET 4 TABLETS WITH FOOD OR MILK NEEDED ORALLY THREE TIMES A DAY NEEDED, NOTES: LAST WEEK TAKING TUMS 500 MG TABLET CHEWABLE 3 TABLETS ORALLY PRN, NOTES: 09/12 TAKING VITAMIN B-12 1000 MCG TABLET 1 TABLET ORALLY ONCE A DAY, NOTES: 09/13 0800 TAKING OMEPRAZOLE 20 MG CAPSULE DELAYED RELEASE 1 CAPSULE ORALLY ONCE A DAY, NOTES: 09/13 1600 TAKING VITAMIN D-3 1000 UNIT CAPSULE 1 CAPSULE ORALLY ONCE A DAY, NOTES: 09/13 0800 TAKING VIAGRA 50 MG TABLET 1 TABLET NEEDED ORALLY ONCE A DAY, NOTES: HASN'T TAKEN YET NOT-TAKING ZOLOFT 100 MG TABLET 1 TABLET ORALLY DAILY, NOTES: 09/12 MEDICATION LIST REVIEWED AND RECONCILED WITH THE PATIENT PAST MEDICAL HISTORY ANXIETY 2003 BELLS PALSY NECK,SHOULDER AND BACK PAIN HEADACHES 2007 MICRO FX LEFT KNEE ARTHRITIS LEFT KNEE YAA ANGINA ALLERGIES N.K.D.A. SURGICAL HISTORY UMBILICAL HERNIA REPAIR A CHILD RIGHT INGUINAL HERNIA REPAIR WITH MESH 1998 MICRO FRACTURE REPAIR LEFT KNEE 2007 LEFT MINISCAL REPAIR 2008 PYLONIDAL CYST REMOVAL 2014 SALIVARY GLAND DILATION 2017 URETHRAL REPAIR AN FAMILY HISTORY FATHER: , DIAGNOSED WITH UNSPECIFIED HEART DISEASE, UNSPECIFIED CEREBRAL ARTERY OCCLUSION WITH CEREBRAL INFARCTION, OTHER SPECIFIED CONDITIONS INFLUENCING HEALTH STATUS, HYPERTENSION MOTHER: ALIVE, HYPERTENSION, OTHER MALIGNANT NEOPLASM OF UNSPECIFIED SITE 1 SISTER(S) - HEALTHY. 2 SON(S) , 1 DAUGHTER(S) . FATHER--KIDNEY DISEASEMOTHER-BLADDER ORLANDO-MOSAIC DOWN SYNDROME. SOCIAL HISTORY GENERAL: TOBACCO USE ARE YOU A:CURRENT SMOKER ARE YOU INTERESTED IN QUITTING?THINKING ABOUT QUITTING PT STATES HE HAS CUT DOWN AND IS TRYING TO QUIT. AD PREVIOUS QUIT ATTEMPTS?YES, MORE THAN 6 MONTHS AGO. COUNSELED THE PATIENT ON SMOKING CESSATION, EDUCATION [id number]/02/2020 HOW MANY CIGARETTES A DAY DO YOU SMOKE?5 OR LESS HOW SOON AFTER YOU WAKE UP DO YOU SMOKE YOUR FIRST CIGARETTE?AFTER 60 MIN HOW OFTEN DO YOU SMOKE CIGARETTES?SOME DAYS, BUT NOT EVERY DAY PATIENT COUNSELED ON THE DANGERS OF TOBACCO USE AND URGED TO QUIT:01/29/2020 SMOKING CESSATION INFORMATION GIVEN01/29/2020 DECLINED LATEX QUESTIONNAIRE LATEX ALLERGY : HAVE YOU EVER DEVELOPED ANY TYPE OF REACTION AFTER HANDLING LATEX PRODUCTS SUCH RUBBER GLOVES, CONDOMS, DIAPHRAGMS, BALLOONS, SOCKS, OR UNDERWEAR?NO LATEX ALLERGY : HAVE YOU EVER DEVELOPED ANY TYPE OF REACTION DURING OR AFTER DENTAL APPOINTMENT, VAGINAL/RECTAL EXAMINATION, SURGICAL PROCEDURE, OR ANY OTHER EXPOSURE?NO LATEX RISK : HAVE YOU EVER HAD ANY DIFFICULTY BREATHING OR HIVES AFTER EATING OR HANDLING ANY FRUITS, OR VEGETABLES; SUCH KIWI, BANANAS, STONE FRUITS, OR CHESTNUTSNO LATEX RISK : DO YOU HAVE A PREVIOUS PERSONAL HISTORY OF MORE THAN NINE SURGERIES, SPINA BIFIDA, OR REPEATED CATHERIZATIONS? NO LATEX RISK : ARE YOU FREQUENTLY EXPOSED TO LATEX PRODUCTS IN YOUR OCCUPATION?NO DATE ASKED : 01/29/2020 ALCOHOL SCREENING DID YOU HAVE A DRINK CONTAINING ALCOHOL IN THE PAST YEAR?NO POINTS0 INTERPRETATIONNEGATIVE RECREATIONAL DRUG USE DRUG USE?NO CAFFEINE CAFFEINE USE?YES HOW OFTEN AND HOW MUCH? 3-4 20 OZ BOTTLES OF [place]/WEEK RESTORATION [id number] REFORM [place] LANGUAGE LANGUAGES SPOKEN:CAMEROONIAN EDUCATION LEVEL OF EDUCATION:NOT FINISHED COLLEGE LEARNING BARRIERS / SPECIAL NEEDS BARRIERS TO LEARNING?NO HEARING IMPAIRED?NO VISION IMPAIRED?YES COGNITIVELY IMPAIRED?NO :CORRECTIVE LENSES READINESS TO LEARN?YES LEARNING PREFERENCES?YES :DEMONSTRATION/VERBAL INSTRUCTION LEARNING CAPABILITIES PRESENT?YES EMOTIONAL BARRIERS?NO SPECIAL DEVICES?NO FLOOR ASSEMBLER NEEDED?NO DOMESTIC VIOLENCE DO YOU FEEL SAFE IN YOUR ENVIRONMENT?YES OCCUPATION: . DIET: REGULAR. EXERCISE: WALKS. MARITAL STATUS: . OTHERS AT HOME: SPOUSE, CHILDREN. NEW PATIENT PAIN DIARY PRECIPITATING FACTORS PAIN CLINIC PFS, CLERGY, PUBLIC HEALTH REFERRALS PFS REFERRAL NEEDED?NO CLERGY REFERRAL NEEDED?NO PUBLIC HEALTH REFERRAL NEEDED?NO WAS THE PROVIDER NOTIFIED OF ANY PERTINENT INFO?YES HAS THE PATIENT BEEN EDUCATED REGARDING HIS/HER PLAN OF CARE?YES HAS THE PATIENT BEEN EDUCATED REGARDING PAIN, THE RISK FOR PAIN, THE IMPORTANCE OF EFFECTIVE PAIN MANAGEMENT, AND THE PAIN ASSESSMENT PROCESS?YES ADVANCE DIRECTIVE ADVANCE DIRECTIVE DISCUSSED WITH PATIENT:YES 09/29/18 PT DOES NOT HAVE ANY ADVANCED DIRECTIVES AND HE DECLINES INFORMATION ON HCP OR ASSISTANCE AT THIS TIME. LAS HOSPITALIZATION/MAJOR DIAGNOSTIC PROCEDURE CHEST PAIN 2004 REVIEW OF SYSTEMS CONSTITUTIONAL: ANY RECENT FEVER OR ILLNESS NO . CHILLS NO . GASTROENTEROLOGY: BOWEL INCONTINENCE NO . ANY NEW CHANGE IN BOWEL CONTROL? NO . ABDOMINAL PAIN NO . CONSTIPATION NO . GENITOURINARY: ANY NEW CHANGE IN BLADDER CONTROL? NO . URINARY INCONTINENCE NO . CARDIOLOGY: CHEST PRESSURE NO . CHEST PAIN NO . RESPIRATORY: COUGH NO . SHORTNESS OF BREATH NO . VITAL SIGNS WT 190.8 LBS, HT 66 IN, BMI 30.79 INDEX, BP 144/77 MM HG, HR 66 /MIN, RR 18 /MIN, TEMP 97.5 F, OXYGEN SAT % 95%, SAFE IN ENV? (Y/N) YES, NA INITIALS AW [id number] ASUMADU RADIOACTIVITY TECHNICIAN. EXAMINATION GENERAL EXAMINATION: GENERALNO ACUTE DISTRESS, WELL NOURISHED AND HYDRATED. PSYCHAPPROPRIATE MOOD AND AFFECT . NECK:POINT TENDER ALONG CERVICAL SPINE, SURROUNDING SKIN SHOWS NO ERYTHEMA, ECCHYMOSIS, INCREASED WARMTH, AND/OR SKIN ERUPTIONS NOTED. . LUNGS:CLEAR TO AUSCULTATION BILATERALLY, NO WHEEZES, RHONCHI, RALES. HEART:NO MURMURS, REGULAR RATE AND RHYTHM. ASSESSMENTS SPONDYLOSIS OF CERVICAL REGION WITHOUT MYELOPATHY OR RADICULOPATHY - M47.812 (PRIMARY) TREATMENT SPONDYLOSIS OF CERVICAL REGION WITHOUT MYELOPATHY OR RADICULOPATHY NOTES: THERAPEUTIC CERVICAL FACET BLOCK C3-C4 C4-C5. CLINICAL NOTES: 44-YEAR-OLD MALE IN FOR CHRONIC PAIN FOLLOW-UP. GIVEN PRESENTING SYMPTOMS RECOMMEND THERAPEUTIC CERVICAL FACET BLOCK C3 C4 C4 C5 WITH POST PROCEDURAL FOLLOW-UP. PATIENT HAS EXPRESSED UNDERSTANDING OF AND WAS IN AGREEMENT WITH TREATMENT PLAN. GIVEN TIME TO ASK QUESTIONS AND EXPRESS CONCERNS. OTHERS NOTES: FACET JOINT INJECTION MATERIAL WAS PRINTED. DISPOSITION & COMMUNICATION FOLLOW UP POSTPROCEDURE (REASON: THERAPEUTIC CERVICAL FACET BLOCK C3-C4 C4-C5) ELECTRONICALLY SIGNED BY JAIME MIN ON 01/30/2020 AT 08:34 AM EDT DISCLAIMER : THIS IS A VISIT SUMMARY EXTRACTED FROM THE [facility] CHART. IT IS NOT A COPY OF THE [employer] PROGRESS NOTE. OBED
== END ==
LOC: M PAIN 13:30
PROVIDERS: ATTEND Family Medicine
DX: M47.812 Spondylosis without myelopathy or radiculopathy, cervical region (principal); F17.210 Nicotine dependence, cigarettes, uncomplicated

== ENCOUNTER → 2020-11-26 | Outpatient (CLI) | payer SELFPAY | LOC: M LABSMTC 09:35 | PROVIDERS: ATTEND Pediatrics | DX: Z20.822 Contact with and (suspected) exposure to COVID-19 (principal) ==

== ENCOUNTER → 2022-03-16 | Outpatient (CLI) | payer OTHER ==
[~2022-03-16] MED LIST changes: -CITA40TA4 PO; +CITA40TA7 PO; -IBUP200T45; +IBUP200T46; +PROHANCE 279.3MG/ML 15ML VIAL As Ordered ONE
== END ==
LOC: M RAD 15:15
PROVIDERS: ATTEND Podiatrist Foot & Ankle Surgery
DX: M79.672 Pain in left foot (principal)
CPT/HCPCS: 73720; A9576

== ENCOUNTER 2022-06-06 17:38 | Emergency (ER) | payer OTHER ==
[~2022-06-06] VITALS: Ht 167.6 cm; Wt 77.3 kg
[~2022-06-06 17:38] MED LIST changes: -PROHANCE 279.3MG/ML 15ML VIAL As Ordered ONE
[2022-06-06 17:39] VITALS: BP 160/86
[2022-06-06] MEDS ORDERED: LIDOCAINE 2% MDV 20ML VIAL SC ONE (19:25)
[2022-06-06] MEDS ORDERED: BOOSTRIX/ADACEL VACCINE (DIPHTH/PERTUSS/ACELL/TETANUS) 0.5ML SYR IM ONE (19:25)
== END 2022-06-06 20:44 | disposition home or self-care (01) ==
LOC: M ED 17:38
DX: S61.210A Laceration without foreign body of right index finger without damage to nail, initial encounter (principal); W23.1XXA Caught, crushed, jammed, or pinched between stationary objects, initial encounter; Y92.009 Unspecified place in unspecified non-institutional (private) residence as the place of occurrence of the external cause; F17.200 Nicotine dependence, unspecified, uncomplicated; Z23 Encounter for immunization

== ENCOUNTER 2022-07-13 09:23 | Outpatient (RCR) | payer OTHER | END 2022-07-28 | LOC: M ST 09:23 | PROVIDERS: ATTEND Physician Assistant | DX: G51.0 Bell's palsy (principal) ==

== ENCOUNTER 2024-02-24 12:11 | Emergency (ER) | payer OTHER ==
[~2024-02-24] VITALS: Ht 167.6 cm; Wt 83.7 kg
[2024-02-24 14:15] VITALS: BP 137/79; TEMP 97.1; O2SAT 97
== END 2024-02-24 14:16 | disposition home or self-care (01) ==
LOC: M ED 12:11
DX: S29.9XXA Unspecified injury of thorax, initial encounter (principal); W22.8XXA Striking against or struck by other objects, initial encounter; Y92.9 Unspecified place or not applicable; Y93.9 Activity, unspecified; Y99.9 Unspecified external cause status; R51.9 Headache, unspecified; G62.9 Polyneuropathy, unspecified; K21.9 Gastro-esophageal reflux disease without esophagitis; Z87.442 Personal history of urinary calculi; F41.9 Anxiety disorder, unspecified; F32.9 Major depressive disorder, single episode, unspecified; F17.200 Nicotine dependence, unspecified, uncomplicated